=== PATIENT | female | born 2000 | race Two or more races ===

== ENCOUNTER 2018-01-30 22:55 | Emergency (ER) | payer BC ==
[~2018-01-30] VITALS: Ht 170.2 cm; Wt 61.2 kg
--- NOTE | 2018-01-30 23:15 | NUR ---
pt bib by parents from home c/o allergic reaction, causing swollen mouth and tongue. pt c/o sob and jaw pain. pt is a/ox4, verbal, able to make needs known. pt already seen by MD. will carry out MD orders and will continue to monitor pt's condition.
[2018-01-30] MEDS ORDERED: diphenhydrAMINE HCL 50 MG/ML VIAL IM ONE (23:30)
[2018-01-30] MEDS ORDERED: diphenhydrAMINE HCL 50 MG/ML VIAL ONE (23:39)
--- NOTE | 2018-01-30 23:45 | NUR ---
adminsitered benadryl 25mg IM on left deltoid.
--- NOTE | 2018-01-31 00:25 | NUR ---
Patient discharged to home in stable condition. Written and verbal after care instructions given. Patient verbalizes understanding of instruction. Patient left facility on foot with steady gait. Pt is accompanied with parents and will be taken home by parents. No s/s of acute distress or sob noted. No IV access on pt. ID band removed. vs stable.
[2018-01-31 00:33] VITALS: BP 142/97
== END 2018-01-31 00:34 | disposition home or self-care (01) ==
LOC: ER 23:04
DX: T45.0X5A Adverse effect of antiallergic and antiemetic drugs, initial encounter (principal); G24.09 Other drug induced dystonia; Z88.2 Allergy status to sulfonamides; Y92.89 Other specified places as the place of occurrence of the external cause
CPT/HCPCS: A4606; J1200; Z7610

== ENCOUNTER 2018-02-06 09:29 | Emergency (ER) | payer BC ==
[~2018-02-06] VITALS: Ht 170.2 cm; Wt 59.0 kg
--- NOTE | 2018-02-06 09:29 | NUR ---
c/o black stool x 1 day , denies n/v. s/p endoscopy 2 weeks ago. nad noted. pt aao x4, amb with steady gait. rr even and unlabored. dr haley at bedside for eval.
[2018-02-06] MEDS ORDERED: METOCLOPRAMIDE HCL 10 MG/2 ML VIAL ONE (09:49)
[2018-02-06] MEDS ORDERED: IV NS 0.9% 1,000 ML BAG IV ONE (10:00)
[2018-02-06] MEDS ORDERED: METOCLOPRAMIDE HCL 10 MG/2 ML VIAL IV ONE (10:00)
[2018-02-06 10:30] LABS: BASOPHILS % (AUTO) 0.6 % (0.0-2.0); EOSINOPHILS % (AUTO) 0.7 % (0.0-6.0); HEMATOCRIT 41 % (33-45); HEMOGLOBIN 13.7 g/dL (11.5-14.8); LYMPHOCYTES # (AUTO) 2.6 /CMM (0.8-4.8); LYMPHOCYTES % (AUTO) 39.9 % (20.0-44.0); MEAN CORPUSCULAR HGB CONC 34 g/dl (31.0-36.0); MEAN CORPUSCULAR VOLUME 77 fL (82-100); MONOCYTES # (AUTO) 0.6 /CMM (0.1-1.30); MONOCYTES % (AUTO) 8.5 % (2.0-12.0); NEUTROPHILS # (AUTO) 3.3 /CMM (1.8-8.9); NEUTROPHILS % (AUTO) 50.3 % (43.0-81.0); PLATELET COUNT (AUTO) 274 /CMM (150-450); RED BLOOD CELL COUNT(AUTO) 5.28 MIL/uL (4.0-5.2); WHITE BLOOD COUNT (AUTO) 6.5 K/uL (4.3-11.0)
[2018-02-06 10:34] LABS: CALCIUM, SERUM 8.7 mg/dL (8.5-10.1); CREATININE 0.9 mg/dL (0.6-1.3); POTASSIUM 3.2 mmol/L (3.5-5.1)
[2018-02-06 10:47] LABS: ALBUMIN 4.2 g/dL (3.4-5.0); BILIRUBIN,DIRECT 0.1 mg/dL (0.0-0.2); BILIRUBIN,TOTAL 0.3 mg/dL (0.2-1.0); TOTAL PROTEIN, SERUM 7.3 g/dL (6.4-8.2)
[2018-02-06] MEDS ORDERED: POTASSIUM CHLORIDE 20 MEQ TAB.PRT.SR PO ONE ×2 (11:00→11:11)
--- NOTE | 2018-02-06 11:14 | NUR ---
IV removed. Catheter intact and site benign. Pressure and 4x4 applied to site. No bleeding noted. Patient discharged to home in stable condition. Written and verbal after care instructions given. Patient verbalizes understanding of instruction.
[2018-02-06 11:19] VITALS: BP 137/75
== END 2018-02-06 11:23 | disposition home or self-care (01) ==
LOC: ER 09:31
DX: K92.1 Melena (principal); E87.6 Hypokalemia; F17.200 Nicotine dependence, unspecified, uncomplicated; K31.84 Gastroparesis; Z88.2 Allergy status to sulfonamides; Z88.8 Allergy status to other drugs, medicaments and biological substances
CPT/HCPCS: 36415; 80048; 80076; 85025; 85730; 96360; 99283; A4606; J7030; Z7610; J2765

== ENCOUNTER 2018-03-11 17:29 | Emergency (ER) | payer BC ==
[~2018-03-11] VITALS: Ht 170.2 cm; Wt 63.5 kg
[2018-03-11 17:29] VITALS: BP 138/99
--- NOTE | 2018-03-11 19:46 | NUR ---
CALLED PT TO PUT IN ROOM, NO ANSWER
== END 2018-03-11 20:15 | disposition left against medical advice (07) ==
LOC: ER 17:30
DX: Z53.21 Procedure and treatment not carried out due to patient leaving prior to being seen by health care provider (principal); F32.9 Major depressive disorder, single episode, unspecified; Z98.890 Other specified postprocedural states
CPT/HCPCS: A4606; Z7610

== ENCOUNTER 2022-04-29 02:54 | Emergency (ER) | payer BC ==
[~2022-04-29] VITALS: Ht 167.6 cm; Wt 99.8 kg
[2022-04-29 03:25] VITALS: BP 116/84
== END 2022-04-29 03:44 | disposition home or self-care (01) ==
LOC: ER 02:56
DX: Z48.01 Encounter for change or removal of surgical wound dressing (principal); F32.A Depression, unspecified; F17.200 Nicotine dependence, unspecified, uncomplicated; Z88.1 Allergy status to other antibiotic agents; Z88.2 Allergy status to sulfonamides